=== PATIENT | female | born 1995 | race Caucasian/White ===

== ENCOUNTER 2017-07-18 22:53 | Emergency (ER) | payer OTHER ==
[~2017-07-18] VITALS: Ht 165.1 cm; Wt 63.8 kg
[2017-07-18] MEDS ORDERED: LO LTAB PO (23:17)
[2017-07-19] MEDS ORDERED: CIPR-249 PO (02:57)
[2017-07-19] MEDS ORDERED: CIPROFLOXACIN 500 MG TAB PO ONE (03:00)
[2017-07-19 03:06] VITALS: BP 122/54
== END 2017-07-19 03:07 | disposition home or self-care (01) ==
LOC: M ED 22:53
DX: L02.31 Cutaneous abscess of buttock (principal); Z86.011 Personal history of benign neoplasm of the brain; Z86.03 Personal history of neoplasm of uncertain behavior; Z91.048 Other nonmedicinal substance allergy status; Z79.899 Other long term (current) drug therapy

== ENCOUNTER → 2017-11-15 | Outpatient (CLI) | payer OTHER | LOC: M LRY 16:43 | DX: S59.911A Unspecified injury of right forearm, initial encounter (principal); X58.XXXA Exposure to other specified factors, initial encounter; Y92.9 Unspecified place or not applicable; Y99.8 Other external cause status | CPT/HCPCS: 81025; G0463 ==